=== PATIENT | male | born 1960 | race Caucasian/White ===

== ENCOUNTER 2018-08-10 11:35 | Emergency (ER) | payer BC ==
[2018-08-10] MEDS ORDERED: Sodium Chloride 0.9% 1,000 ML IV ONE (12:06)
--- NOTE | 2018-08-10 12:11 | EDM.PDOC ---
ED HPI GENERAL MEDICAL PROBLEM - General Chief Complaint: Respiratory Problem Stated Complaint: RESPIRATORY ISSUES/ABD PAIN Time Seen by Provider: 08/10/18 11:58 - History of Present Illness INITIAL COMMENTS - FREE TEXT/NARRATIVE: This is a 57-year-old male accompanied by his , who presented to the emergency department for an evaluation of persistent cough and congestion for last 2 weeks and left lower quadrant abdominal pain for last few days. He stated that he has been placed on doxycycline and Z-Leonardo for cough and congestion which he stated that he finished a course of antibiotics, despite using medication his symptoms remains the same. He stated that he has been having left lower quadrant pain for last few days which is associated with nausea but denies any episode of vomiting. He further stated that he has a history of diverticulitis and currently rated his discomfort level about 8 on a scale of 0-10. Pain described as cramping type sensation which has no radiation. He denies any constipation, diarrhea, bloody stool, fever, chest pain , neck pain, headache, chills, night sweats, weight loss. He denies any medication use to alleviate pain prior to arrival today. He denies any recent traveling or known sick contacts. Denies any other concern at this time. Left Lower Abdomen Pain Score (Numeric/FACES): 8 - Related Data Allergies Allergy/AdvReac Type Severity Reaction Status Date / Time No Known Allergies Allergy Verified 08/10/18 11:50 Home Meds: Home Meds Albuterol [Ventolin HFA] 2 puff INH Q6HR PRN #1 inhaler 08/10/18 [Rx] Cyclobenzaprine [Flexeril] 10 mg PO ASDIRECTED PRN 08/10/18 [History] Lisinopril 10 mg PO DAILY 08/10/18 [History] Morphine Sulfate [Morphabond ER] 15 mg PO ASDIRECTED PRN 08/10/18 [History] atorvaSTATin [Lipitor] 40 mg PO DAILY 08/10/18 [History] oxyCODONE 10 mg PO ASDIRECTED PRN 08/10/18 [History] Past Medical History Cardiovascular History: Reports: High Cholesterol, Hypertension Gastrointestinal History: Reports: Diverticulosis - Past Surgical History GI Surgical History: Reports: Colonoscopy Social & Family History - Tobacco Use Smoking Status *Q: Current Every Day Smoker Years of Tobacco use: 25 Packs/Tins Daily: 1 - Caffeine Use Caffeine Use: Reports: None - Recreational Drug Use Recreational Drug Use: No ED ROS GENERAL - Review of Systems Review Of Systems: ROS reveals no pertinent complaints other than HPI. ED EXAM, GENERAL - Physical Exam Exam: See Below Exam Limited By: No Limitations General Appearance: Alert, WD/WN, No Apparent Distress Ears: Normal External Exam, Normal Canal, Hearing Grossly Normal, Normal TMs Ear Exam: Bilateral Ear: Auricle Normal, Canal Normal, TM normal Nose: Normal Inspection, Normal Mucosa, No Blood, Clear Rhinorrhea Throat/Mouth: Normal Inspection, Normal Lips, Normal Teeth, Normal Gums, Normal Oropharynx, Normal Voice, No Airway Compromise Head: Atraumatic, Normocephalic Neck: Normal Inspection, Supple, Non-Tender, Full Range of Motion Respiratory/Chest: No Respiratory Distress, No Accessory Muscle Use, Chest Non- Tender, Rhonchi Cardiovascular: Normal Peripheral Pulses, Regular Rate, Rhythm, No Edema, No Murmur GI/Abdominal: Normal Bowel Sounds, Soft, No Organomegaly, No Distention, No Abnormal Bruit, No Mass, Other (Mild tenderness to palpation at left lower quadrant.) Back Exam: Normal Inspection, Full Range of Motion, NT Extremities: Normal Inspection, Normal Range of Motion, Non-Tender, Normal Capillary Refill, No Pedal Edema Neurological: Alert, Oriented Psychiatric: Normal Affect, Normal Mood Skin Exam: Warm, Dry, Intact, Normal Color, No Rash Course - Vital Signs Last Recorded V/S: Last Vital Signs Temp 36.9 C 08/10/18 11:46 Pulse 73 08/10/18 11:46 Resp 13 08/10/18 11:46 BP 137/82 08/10/18 11:46 Pulse Ox 98 08/10/18 11:46 - Orders/Labs/Meds Orders: Active Orders 24 hr Category Date Time Status Chest 2V [CR] Stat Exams 08/10/18 12:06 Taken Labs: Laboratory Tests 08/10/18 08/10/18 08/10/18 Range/Units 12:35 12:35 12:35 WBC 8.45 (4.23-9.07) K/mm3 RBC 4.99 (4.63-6.08) M/mm3 Hgb 14.9 (13.7-17.5) gm/L Hct 44.2 (40.1-51.0) % MCV 88.6 (79.0-92.2) fl MCH 29.9 (25.7-32.2) pg MCHC 33.7 (32.2-35.5) g/dl RDW Std Deviation 50.0 H (35.1-43.9) fL Plt Count 263 (163-337) K/mm3 MPV 9.7 (9.4-12.3) fl Neut % (Auto) 49.2 (34.0-67.9) % Lymph % (Auto) 35.0 (21.8-53.1) % Glynn % (Auto) 9.7 (5.3-12.2) % Eos % (Auto) 5.4 (0.8-7.0) Baso % (Auto) 0.6 (0.1-1.2) % Neut # (Auto) 4.15 (1.78-5.38) K/mm3 Lymph # (Auto) 2.96 (1.32-3.57) K/mm3 Glynn # (Auto) 0.82 (0.30-0.82) K/mm3 Eos # (Auto) 0.46 (0.04-0.54) K/mm3 Baso # (Auto) 0.05 (0.01-0.08) K/mm3 Sodium 136 (136-145) mEq/L Potassium 3.5 (3.5-5.1) mEq/L Chloride 103 (98-107) mEq/L Carbon Dioxide 24 (21-32) mEq/L Anion Gap 12.5 (5-15) BUN 6 L (7-18) mg/dL Creatinine 1.1 (0.7-1.3) mg/dL Est Cr Clr Drug Dosing 68.47 mL/min Estimated GFR (MDRD) > 60 (>60) mL/min BUN/Creatinine Ratio 5.5 L (14-18) Glucose 94 (74-106) mg/dL Calcium 8.5 (8.5-10.1) mg/dL Total Bilirubin 0.3 (0.2-1.0) mg/dL AST 14 L (15-37) U/L ALT 24 (16-63) U/L Alkaline Phosphatase 97 (46-116) U/L NT-Pro-B Natriuret Pep 25 (0-125) pg/mL Total Protein 6.8 (6.4-8.2) g/dl Albumin 3.3 L (3.4-5.0) g/dl Globulin 3.5 gm/dL Albumin/Globulin Ratio 0.9 L (1-2) Lipase 148 (73-393) U/L Meds: Medications Discontinued Medications Generic Name Dose Route Start Last Admin Trade Name Freq PRN Reason Stop Dose Admin Sodium Chloride 1,000 mls @ 999 mls/hr 08/10/18 12:06 08/10/18 12:35 Normal Saline IV 08/10/18 13:06 999 mls/hr ONETIME ONE Administration - Re-Assessments/Exams Free Text/Narrative Re-Assessment/Exam: 08/10/18 13:00 patient reevaluated at bedside. Patient appears to be in no acute cardiopulmonary distress. Lung sounds clear to auscultation bilaterally. Explained the results of CT scan and x-ray which showed no acute pathology. At this time patient is ready for discharge. Departure - Departure Time of Disposition: 13:18 Disposition: Home, Self-Care 01 Condition: Good Clinical Impression: Bronchitis - Discharge Information Prescriptions: Albuterol [Ventolin HFA] 2 puff INH Q6HR PRN #1 inhaler PRN Reason: Wheezing Instructions: Shortness of Breath, Adult, [id number] Referrals: Gris Merza NP [Primary Care Provider] - 3 Days (Please call your primary care provider for reevaluation for today emergency visit) Forms: ED Department Discharge Additional Instructions: Patient has been advised to drink plenty of fluids to keep hydrated. Also advised to take Tylenol 1000 mg were ibuprofen 600 mg by mouth 3-4 times a day as needed for fever and pain control. Highly advised to seek immediate medical attention if he develops any chest pain, shortness of breath, headache, visual changes, or fever greater than 100.4F - My Orders Last 24 Hours: My Active Orders 08/10/18 12:06 Chest 2V [CR] Stat - Assessment/Plan Last 24 Hours: My Active Orders 08/10/18 12:06 Chest 2V [CR] Stat
--- NOTE | 2018-08-10 12:52 | CT ---
CT abdomen and pelvis Technique: Multiple axial sections were obtained from above the dome of the diaphragm inferiorly through the pubic symphysis. Intravenous and oral contrast was not utilized. Lack of contrast limits details of the exam. Findings: Nonobstructing calculus is seen within the mid to upper left kidney measuring 5.5 mm. No other abnormal calcifications are seen within the kidneys. No hydronephrosis is seen. No ureteral dilatation or ureteral stone is seen. Visualized lung bases show nothing acute. Liver shows no focal parenchymal abnormality. Spleen shows no discrete abnormality. Adrenal glands show no nodule. Gallbladder contains no calcified gallstones. Pancreas is within normal limits. Aorta shows no aneurysmal dilatation with mild atherosclerotic calcification. Mild areas of ectasia are seen. Maximum AP dimension of the aorta is 2.1 cm. No retroperitoneal adenopathy is seen. No mesenteric abnormalities are seen. Appendix is seen and is normal in size. No pelvic mass or adenopathy is seen. No free fluid or inflammatory change is seen. Previous surgery is noted at L4-L5. Slight degenerative change is noted within the spine. Impression: 1. Nonobstructing stone within the left kidney. 2. Other incidental findings. 3. Nothing acute is definitely appreciated on noncontrast CT study of the abdomen or pelvis. Diagnostic code #2
--- NOTE | 2018-08-12 09:34 | CR ---
Chest: Two views of the chest were obtained. Comparison: No prior chest x-ray. Heart size and mediastinum are normal. Lungs are clear. Prior cervical spine surgery is noted. Impression: 1. Nothing acute is seen on two-view chest x-ray. Diagnostic code #2
== END 2018-08-10 13:35 | disposition home or self-care (01) ==
LOC: JD.ED 11:35
DX: J40 Bronchitis, not specified as acute or chronic (principal); R10.32 Left lower quadrant pain; I10 Essential (primary) hypertension; F17.210 Nicotine dependence, cigarettes, uncomplicated
CPT/HCPCS: 36415; 71046; 74176; 80053; 83690; 83880; 85025; 96360; 99285; J7040; 99283

== ENCOUNTER 2020-01-16 23:33 | Emergency (ER) | payer BC, MEDICAID ==
[2020-01-17] MEDS ORDERED: Ibuprofen 600 MG Tab PO ONE (03:21)
[2020-01-17] MEDS ORDERED: Orphenadrine 100 MG Tab.ER PO STA (03:21)
--- NOTE | 2020-01-17 03:26 | EDM.PDOC ---
ED HPI GENERAL MEDICAL PROBLEM - General Chief Complaint: Back Pain or Injury Stated Complaint: [facility] Time Seen by Provider: 01/17/20 03:02 Source of Information: Reports: Patient History Limitations: Reports: No Limitations - History of Present Illness INITIAL COMMENTS - FREE TEXT/NARRATIVE: Mr. Rosario is a very pleasant 59-year-old man with a past medical history significant for chronic neck and lower back pain, status post 2 ACDFs and 4 lumbar surgeries, who states that he and his started hiking in [facility] at 15:00 yesterday, 01/16/2020. He was not wearing a backpack, but he states that by 20:30, his lower right back was in pain. The pain radiated to the left side, then down his posterior left thigh to the knee. No tingling, numbness, or weakness, only pain. No bowel or bladder incontinence. He did not feel that he could make it back out of the park, therefore his called 911, and the patient was airlifted by helicopter here. He was given IV fentanyl en route. The patient states that while he has chronic lower back pain, his pain is usually on the left side. He has experienced similar left lower back and left posterior thigh pain in the past, numerous times, but he states that he has not previously had lower right back pain. The patient states that he recently had the flu, although he acknowledges that he was not actually tested for influenza. He was treated with cough syrup and an antibiotic. Otherwise, the patient denies recent fever, chills, cough, dyspnea, chest pain, palpitations, nausea, vomiting, constipation, diarrhea, abdominal pain, urinary symptoms, recent weight gain or weight loss, recent bloody bowel movements or black bowel movements, recent joint aches, headaches, or rashes. Here in the ED, the patient is found to be hemodynamically stable, afebrile, saturating 93% on room air. The patient's PCP is Gris Meraz NP. He did not receive an influenza vaccine this season, and declined an offer to receive one here today. Lower Back Pain Score (Numeric/FACES): 6 - Related Data Allergies Allergy/AdvReac Type Severity Reaction Status Date / Time No Known Allergies Allergy Verified 10/20/18 17:49 Home Meds: Home Meds Cyclobenzaprine [Flexeril] 10 mg PO ASDIRECTED PRN 08/10/18 [History] Lisinopril 10 mg PO DAILY 08/10/18 [History] atorvaSTATin [Lipitor] 40 mg PO DAILY 08/10/18 [History] oxyCODONE 10 mg PO DAILY PRN 08/10/18 [History] Sertraline [Zoloft] 100 mg PO DAILY 09/26/18 [History] Orphenadrine [Norflex] 1 tab PO Q12H PRN #14 tab.er 01/17/20 [Rx] Past Medical History Cardiovascular History: Reports: High Cholesterol, Hypertension Gastrointestinal History: Reports: Colon Polyp, Diverticulosis, Hemorrhoids Genitourinary History: Reports: Renal Calculus Psychiatric History: Reports: Anxiety, Depression - Past Surgical History GI Surgical History: Reports: Colonoscopy (x 3). Denies: EGD Neurological Surgical History: Reports: C-Spine (ACDF x 2), Lumbar Spine ( micriodiscectomy, L4-L5 fusion, reversal of fusion, repeat L4-L5 fusion) Musculoskeletal Surgical History: Reports: Nerve Relocation (left ulnar n. x 2) , Shoulder Surgery (left, arthroscopic) Social & Family History - Tobacco Use Smoking Status *Q: Current Every Day Smoker Years of Tobacco use: 39 Packs/Tins Daily: 1 Packs/Tins Daily Comment: Down from 2 ppd - Caffeine Use Caffeine Use: Reports: Soda - Alcohol Use Alcohol Use History: Yes Alcohol Use Frequency: Rarely - Recreational Drug Use Recreational Drug Use: No - Living Situation & Occupation Living situation: Reports: , with Spouse Occupation: Employed ([employer]s [employer]) ED ROS GENERAL - Review of Systems Review Of Systems: Comprehensive ROS is negative, except as noted in HPI. Musculoskeletal: Reports: Neck Pain (chronic), Back Pain (chronic) ED EXAM,LOWER BACK PAIN/INJURY - Physical Exam Exam: See Below Exam Limited By: No Limitations General Appearance: Alert, WD/WN, No Apparent Distress (moves easily, with no apparent discomfort), Other (Face appears sunburned) Eye Exam: Bilateral Eye: EOMI, Normal Inspection Ears: Normal External Exam, Hearing Grossly Normal Nose: Normal Inspection Throat/Mouth: Normal Inspection, Normal Lips, Normal Voice, No Airway Compromise Head: Atraumatic, Normocephalic Neck: Normal Inspection, Full Range of Motion Respiratory/Chest: No Respiratory Distress, Lungs Clear, Normal Breath Sounds, No Accessory Muscle Use Cardiovascular: Normal Peripheral Pulses, Regular Rate, Rhythm, No Edema, No Gallop, No JVD, No Murmur, No Rub GI/Abdominal: Normal Bowel Sounds, Soft, No Organomegaly, No Distention, No Abnormal Bruit, No Mass, Tender (left side only - the patient states that it is chronic, and that the cause is not known) (Male) Exam: Deferred Rectal (Males) Exam: Deferred Back Exam: Other (There is a well-healed vertical surgical scar over the lower lumbar spinous processes. The patient reports tenderness to palpation of both the lower right and lower left paraspinous muscles - he jumps when palpated. Right leg raise to 45 degrees induces lower back pain without radicular symptoms , bilaterally. No change with dorsiflexion of the foot. The patient is able to flex his spine to 90 degrees, and extend his spine to 30 degrees. He is able to tilt his spine to 30 degrees bilaterally. He is able to twist his spine to 45 degrees bilaterally. Unilateral knee bend is normal bilaterally.) Extremities: Normal Inspection, Normal Range of Motion, No Pedal Edema, Normal Capillary Refill Neurological: Alert, Normal Dorsiflexion, Normal Plantar Flexion, Normal Gait ( in exam room), No Motor/Sensory Deficits, Oriented x 3 Psychiatric: Normal Affect Skin Exam: Warm, Dry, Intact, Normal Color, No Rash Course - Vital Signs Last Recorded V/S: Last Vital Signs Temp 37.4 C 01/16/20 23:45 Pulse 64 01/16/20 23:45 Resp 20 01/16/20 23:45 BP 120/71 01/16/20 23:45 Pulse Ox 93 L 01/16/20 23:45 - Re-Assessments/Exams Free Text/Narrative Re-Assessment/Exam: 01/17/20 03:21 The patient's history and physical examination are consistent with lower back muscle spasm, not a new herniated intervertebral disc. I will therefore treat him with Norflex and ibuprofen. I will submit a prescription for Norflex, and he can take [id number] ibuprofen. I will discharge him home. Departure - Departure Time of Disposition: 03:22 Disposition: Home, Self-Care 01 Condition: Good Clinical Impression: Spasm of muscle of lower back - Discharge Information *PRESCRIPTION DRUG MONITORING PROGRAM REVIEWED*: Not Applicable *COPY OF PRESCRIPTION DRUG MONITORING REPORT IN PATIENT NICOLÁS: Not Applicable Referrals: Gris Meraz NP [Primary Care Provider] - Additional Instructions: You were seen in the emergency room for low back pain that developed while hiking. Based on your history and physical examination, your low back pain is due to a muscle spasm, not a new herniated intervertebral disc. You have been started on the muscle relaxant Norflex, and a prescription for Norflex has been sent to the [facility] located just south and across the [address] from [facility]. Take 1 tablet of Norflex every 12 hours, starting this evening, 01/17/2020, as prescribed. It is important that if you take Norflex, that you NOT also take previously prescribed Flexeril. In addition to Norflex, you have been started on ibuprofen. Ibuprofen is available [id number]. Take 3 tablets (600 mg) every 8 hours, with food, as needed for discomfort. Follow-up with your PCP, Gris Meraz NP, as needed. If any other problems, please do not hesitate to return to the ER. Sepsis Event Note - Evaluation Sepsis Screening Result: No Definite Risk - Focused Exam Vital Signs: Vital Signs Temp Pulse Resp BP Pulse Ox 01/16/20 23:45 37.4 C 64 20 120/71 93 L Date Exam was Performed: 01/17/20 Time Exam was Performed: 03:21
== END 2020-01-17 04:31 | disposition home or self-care (01) ==
LOC: SUPCPDRO 23:33 → JD.ED 23:33
DX: M62.830 Muscle spasm of back (principal); E78.00 Pure hypercholesterolemia, unspecified; I10 Essential (primary) hypertension; F41.9 Anxiety disorder, unspecified; F32.9 Major depressive disorder, single episode, unspecified; F17.210 Nicotine dependence, cigarettes, uncomplicated; Z79.899 Other long term (current) drug therapy
CPT/HCPCS: 99284; A9270

== ENCOUNTER 2020-06-02 21:15 | Emergency (ER) | payer MEDICAID ==
[2020-06-02] MEDS ORDERED: Aspirin 81 MG Tab.Chew PO ONE (22:09)
[2020-06-02] MEDS ORDERED: Lactated Ringers 250 ML IV ONE (22:09)
[2020-06-02] MEDS ORDERED: Nitroglycerin 0.4 MG Tab.SL SL ONE (22:11)
--- NOTE | 2020-06-02 22:12 | EDM.PDOC ---
ED HPI GENERAL MEDICAL PROBLEM - General Chief Complaint: Chest Pain Stated Complaint: CHEST PAIN Time Seen by Provider: 06/02/20 22:00 - History of Present Illness INITIAL COMMENTS - FREE TEXT/NARRATIVE: 59-year-old male presents the emergency room with chest pain. This chest pain is more right-sided and substernal radiates into his jaw. He does not have any shoulder or arm involvement. This pain started several hours ago. The patient has had problems with chest pain in the past his last stress test was roughly 6 years ago. It was nondiagnostic. The patient does smoke. He is treated for hypertension and hyperlipidemia but he has a negative family history for coronary artery disease. It is fairly active any goes out walking or hiking on a daily basis and this does not seem to bring on any chest pain chest pressure breathing difficulties or shortness of breath. Mid-Sternal Chest Pain Score (Numeric/FACES): 5 - Related Data Allergies Allergy/AdvReac Type Severity Reaction Status Date / Time No Known Allergies Allergy Verified 06/02/20 21:41 Home Meds: Home Meds Lisinopril 10 mg PO DAILY 08/10/18 [History] atorvaSTATin [Lipitor] 40 mg PO DAILY 08/10/18 [History] Sertraline [Zoloft] 100 mg PO DAILY 09/26/18 [History] Past Medical History Cardiovascular History: Reports: High Cholesterol, Hypertension Gastrointestinal History: Reports: Colon Polyp, Diverticulosis, Hemorrhoids Genitourinary History: Reports: Renal Calculus Musculoskeletal History: Reports: Back Pain, Chronic, Neck Pain, Chronic Psychiatric History: Reports: Anxiety, Depression - Past Surgical History GI Surgical History: Reports: Colonoscopy Neurological Surgical History: Reports: C-Spine, Lumbar Spine Musculoskeletal Surgical History: Reports: Nerve Relocation, Shoulder Surgery Social & Family History - Tobacco Use Smoking Status *Q: Current Every Day Smoker Years of Tobacco use: 30 Packs/Tins Daily: 1 - Caffeine Use Caffeine Use: Reports: Coffee - Recreational Drug Use Recreational Drug Use: No - Living Situation & Occupation Living situation: Reports: , with Spouse Occupation: Employed ([employer]s [employer]) ED ROS GENERAL - Review of Systems Review Of Systems: See Below Constitutional: Reports: No Symptoms HEENT: Reports: No Symptoms Respiratory: Reports: No Symptoms Cardiovascular: Reports: Chest Pain. Denies: Dyspnea on Exertion, Edema, Palpitations Endocrine: Reports: No Symptoms GI/Abdominal: Reports: No Symptoms : Reports: No Symptoms Musculoskeletal: Reports: No Symptoms Skin: Reports: No Symptoms Neurological: Reports: No Symptoms ED EXAM, GENERAL - Physical Exam Exam: See Below Exam Limited By: No Limitations General Appearance: Alert, No Apparent Distress, Other (He rates his pain at a 4 out of 10 at worst it was about an 8) Head: Atraumatic, Normocephalic Neck: Normal Inspection, Supple, Non-Tender, Full Range of Motion Respiratory/Chest: No Respiratory Distress, Lungs Clear, Normal Breath Sounds Cardiovascular: Regular Rate, Rhythm, No Edema, No Murmur GI/Abdominal: Normal Bowel Sounds, Soft, Non-Tender Back Exam: Normal Inspection. No: CVA Tenderness (L), CVA Tenderness (R) Extremities: Normal Inspection, No Pedal Edema Neurological: Alert, Oriented, Normal Cognition Psychiatric: Normal Affect, Normal Mood EKG INTERPRETATION EKG Date: 06/02/20 Rhythm: NSR [place]: LAD-Left [place] Deviation P-Wave: Present QRS: Normal ST-T: Other (Inverted T waves in aVF as well as lead III no significant ST-T wave changes) QT: Normal Comparison: NA - No Prior EKG EKG Interpretation Comments: Borderline EKG Course - Vital Signs Last Recorded V/S: Last Vital Signs Temp 36.3 C 06/02/20 21:38 Pulse 67 06/02/20 23:53 Resp 16 06/02/20 23:53 BP 101/59 L 06/02/20 23:53 Pulse Ox 96 06/02/20 23:53 - Orders/Labs/Meds Orders: Active Orders 24 hr Category Date Time Status EKG 12 Lead [EKG Documentation Completion] [RC] STAT Care 06/02/20 21:42 Active Chest 1V Frontal [CR] Stat Exams 06/02/20 21:45 Taken Lactated Ringers [Ringers, Lactated] 1,000 ml Med 06/02/20 22:15 Active IV ASDIRECTED Medication Orders Lactated Ringer's (Ringers, Lactated) 1,000 mls @ 50 mls/hr IV ASDIRECTED REBECCA Last Admin: 06/02/20 22:25 Dose: 50 mls/hr Documented by: PARISH Labs: Laboratory Tests 07/26/20 07/26/20 07/26/20 Range/Units 22:00 22:00 22:00 WBC 14.62 H (4.23-9.07) K/mm3 RBC 4.97 (4.63-6.08) M/mm3 Hgb 15.2 (13.7-17.5) gm/dl Hct 44.8 (40.1-51.0) % MCV 90.1 D (79.0-92.2) fl MCH 30.6 (25.7-32.2) pg MCHC 33.9 (32.2-35.5) g/dl RDW Std Deviation 47.2 H (35.1-43.9) fL Plt Count 262 (163-337) K/mm3 MPV 9.6 (9.4-12.3) fl Neutrophils % (Manual) 66 H (40-60) % Band Neutrophils % 6 (0-10) % Lymphocytes % (Manual) 20 (20-40) % Atypical Lymphs % 0 % Monocytes % (Manual) 5 (2-10) % Eosinophils % (Manual) 3 (0.8-7.0) % Basophils % (Manual) 0 L (0.2-1.2) Platelet Estimate Adequate Plt Morphology Comment Normal RBC Morph Comment Normal PT 10.4 (9.7-12.0) SECONDS INR 0.95 APTT 28 (22-31) SECONDS D-Dimer, Quantitative (0.19-0.50) mg/L Sodium 139 (136-145) mEq/L Potassium 3.9 (3.5-5.1) mEq/L Chloride 104 (98-107) mEq/L Carbon Dioxide 28 (21-32) mEq/L Anion Gap 10.9 (5-15) BUN 10 (7-18) mg/dL Creatinine 1.2 (0.7-1.3) mg/dL Est Cr Clr Drug Dosing 61.29 mL/min Estimated GFR (MDRD) > 60 (>60) mL/min BUN/Creatinine Ratio 8.3 L (14-18) Glucose 98 (74-106) mg/dL Calcium 8.7 (8.5-10.1) mg/dL Total Bilirubin 0.3 (0.2-1.0) mg/dL AST 13 L (15-37) U/L ALT 21 (16-63) U/L Alkaline Phosphatase 94 (46-116) U/L Troponin I < 0.017 (0.00-0.056) ng/mL Total Protein 7.1 (6.4-8.2) g/dl Albumin 3.3 L (3.4-5.0) g/dl Globulin 3.8 gm/dL Albumin/Globulin Ratio 0.9 L (1-2) 06/02/20 06/02/20 Range/Units 22:00 23:55 WBC (4.23-9.07) K/mm3 RBC (4.63-6.08) M/mm3 Hgb (13.7-17.5) gm/dl Hct (40.1-51.0) % MCV (79.0-92.2) fl MCH (25.7-32.2) pg MCHC (32.2-35.5) g/dl RDW Std Deviation (35.1-43.9) fL Plt Count (163-337) K/mm3 MPV (9.4-12.3) fl Neutrophils % (Manual) (40-60) % Band Neutrophils % (0-10) % Lymphocytes % (Manual) (20-40) % Atypical Lymphs % % Monocytes % (Manual) (2-10) % Eosinophils % (Manual) (0.8-7.0) % Basophils % (Manual) (0.2-1.2) Platelet Estimate Plt Morphology Comment RBC Morph Comment PT (9.7-12.0) SECONDS INR APTT (22-31) SECONDS D-Dimer, Quantitative 0.23 (0.19-0.50) mg/L Sodium (136-145) mEq/L Potassium (3.5-5.1) mEq/L Chloride (98-107) mEq/L Carbon Dioxide (21-32) mEq/L Anion Gap (5-15) BUN (7-18) mg/dL Creatinine (0.7-1.3) mg/dL Est Cr Clr Drug Dosing mL/min Estimated GFR (MDRD) (>60) mL/min BUN/Creatinine Ratio (14-18) Glucose (74-106) mg/dL Calcium (8.5-10.1) mg/dL Total Bilirubin (0.2-1.0) mg/dL AST (15-37) U/L ALT (16-63) U/L Alkaline Phosphatase (46-116) U/L Troponin I < 0.017 (0.00-0.056) ng/mL Total Protein (6.4-8.2) g/dl Albumin (3.4-5.0) g/dl Globulin gm/dL Albumin/Globulin Ratio (1-2) Meds: Medications Generic Name Dose Route Start Last Admin Trade Name Freq PRN Reason Stop Dose Admin Lactated Ringer's 1,000 mls @ 50 mls/hr 06/02/20 22:15 06/02/20 22:25 Ringers, Lactated IV 50 mls/hr ASDIRECTED REBECCA Administration Discontinued Medications Generic Name Dose Route Start Last Admin Trade Name Freq PRN Reason Stop Dose Admin Aspirin 324 mg 06/02/20 22:09 06/02/20 22:19 Aspirin PO 06/02/20 22:10 324 mg ONETIME ONE Administration Lactated Ringer's 250 mls @ 999 mls/hr 06/02/20 22:09 06/02/20 22:19 Ringers, Lactated IV 06/02/20 22:24 999 mls/hr .BOLUS ONE Administration Nitroglycerin 0.4 mg 06/02/20 22:11 06/02/20 22:22 Nitrostat SL 06/02/20 22:12 0.4 mg ONETIME ONE Administration - Re-Assessments/Exams Free Text/Narrative Re-Assessment/Exam: 06/03/20 01:21 EKG was nondiagnostic he has inverted T waves in aVF no significant ST-T wave changes. Chest x-ray with was nondiagnostic no acute cardiopulmonary changes laboratory evaluation is unrevealing and initial troponin is negative secondary troponin is negative. I did use the heart score with this gentleman and he has a heart score of 3 one point for moderately suspicious history a second point for his age and one point for 1 or 2 risk factors. His troponins were negative the patient did not demonstrate any significant ST depression or any nonspecific repolarization abnormalities. I did discuss the results of the heart score with the patient and he understands that there is no 100% assurance. And with a heart score of 3 or less he still has a 1.7% chance of a major acute coronary event in the next 6 weeks. The patient would like to be discharged home I have recommended he discuss further evaluation with his regular provider such as a stress test. Of also recommended he continue his current medications including his statin medication and add a baby aspirin 81 mg enteric-coated daily. Of also encouraged him to quit smoking. Departure - Departure Time of Disposition: 01:24 Disposition: Home, Self-Care 01 Clinical Impression: Chest pain Referrals: Gris Meraz NP [Primary Care Provider] - Forms: ED Department Discharge Additional Instructions: Return to the emergency room with any questions problems or worsening symptoms. Quit smoking! Start a baby aspirin 81 mg enteric-coated 1 daily. Follow-up with your healthcare provider this next week and discuss if you should have further heart testing done. Sepsis Event Note (ED) - Evaluation Sepsis Screening Result: No Definite Risk - Focused Exam Vital Signs: Vital Signs Temp Pulse Resp BP BP Pulse Ox 06/02/20 23:53 67 16 101/59 L 96 06/02/20 23:47 61 21 H 99/70 93 L 06/02/20 22:22 110/66 06/02/20 21:38 36.3 C 62 16 102/66 93 L - My Orders Last 24 Hours: My Active Orders 06/02/20 21:42 EKG 12 Lead [EKG Documentation Completion] [RC] STAT 06/02/20 21:45 Chest 1V Frontal [CR] Stat 06/02/20 22:15 Lactated Ringers [Ringers, Lactated] 1,000 ml IV ASDIRECTED - Assessment/Plan Last 24 Hours: My Active Orders 06/02/20 21:42 EKG 12 Lead [EKG Documentation Completion] [RC] STAT 06/02/20 21:45 Chest 1V Frontal [CR] Stat 06/02/20 22:15 Lactated Ringers [Ringers, Lactated] 1,000 ml IV ASDIRECTED
[2020-06-02] MEDS ORDERED: Lactated Ringers 1,000 ML IV SCH (22:15)
--- NOTE | 2020-06-03 11:19 | CR ---
Chest: Portable view of the chest was obtained. Comparison: Prior chest x-ray of 08/10/18. Heart size and mediastinum are within normal limits. Lungs show no acute parenchymal change. Bony structures are grossly intact. Prior cervical spine surgery is noted. Impression: 1. Nothing acute is appreciated on portable chest x-ray. Diagnostic code #2 This report was dictated in MDT
== END 2020-06-03 01:44 | disposition home or self-care (01) ==
LOC: JD.ED 21:15
DX: R07.2 Precordial pain (principal); I10 Essential (primary) hypertension; E78.00 Pure hypercholesterolemia, unspecified; F41.9 Anxiety disorder, unspecified; F32.9 Major depressive disorder, single episode, unspecified; F17.210 Nicotine dependence, cigarettes, uncomplicated; Z79.899 Other long term (current) drug therapy
CPT/HCPCS: 36415; 71045; 80053; 84484; 85007; 85027; 85379; 85610; 85730; 93005; 99285; A9270; J7120; 93010; 99284

== ENCOUNTER 2021-12-26 19:38 | Observation (INO) | payer MEDICAID ==
[2021-12-26] MEDS ORDERED: Sodium Chloride 0.9% 10 ML Syringe FLUSH PRN (20:27)
[2021-12-26] MEDS ORDERED: Ondansetron 4 MG/2 ML SDV IVPUSH ONE ×2 (20:27→20:35)
[2021-12-26] MEDS ORDERED: Sodium Chloride 0.9% 1,000 ML IV SCH (20:30)
[2021-12-26] MEDS ORDERED: Iopamidol 612 MG/ML 100 ML Bottle IVPUSH ONE (20:35)
[2021-12-26] MEDS ORDERED: Sodium Chloride 0.9% 10 ML SDV FLUSH ONE (20:35)
[2021-12-26] MEDS ORDERED: HYDROmorphone 1 MG/ML Syringe IVPUSH ONE (20:35)
[2021-12-26] MEDS ORDERED: HYDROmorphone 0.5 MG/0.5 ML Syringe IVPUSH ONE (21:51)
[2021-12-26 22:08] LABS: HEMOGLOBIN A1C 5.7 %
[2021-12-26 22:33] LABS: CORONAVIRUS COVID-19 NAA NEGATIVE (NEGATIVE)
[2021-12-26] MEDS: Sodium Chloride 0.9% 1,000 ML IV SCH (23:45)
[2021-12-26] MEDS ORDERED: Ondansetron 4 MG/2 ML SDV IVPUSH PRN (23:50)
[2021-12-27] MEDS: HYDROmorphone 1 MG/ML Syringe IVPUSH PRN ×5 (00:22→15:22)
[2021-12-27] MEDS: Sodium Chloride 0.9% 1,000 ML IV SCH (09:31)
== END 2021-12-27 15:35 | disposition home or self-care (01) ==
LOC: JD.ED 19:38 → JD.MS 22:41
PROVIDERS: ADMIT Family Medicine; ATTEND Family Medicine
DX: K85.90 Acute pancreatitis without necrosis or infection, unspecified (principal); K57.90 Diverticulosis of intestine, part unspecified, without perforation or abscess without bleeding; I10 Essential (primary) hypertension; E78.5 Hyperlipidemia, unspecified; F32.A Depression, unspecified; Z79.899 Other long term (current) drug therapy; E78.00 Pure hypercholesterolemia, unspecified; F41.9 Anxiety disorder, unspecified; F17.210 Nicotine dependence, cigarettes, uncomplicated; Z98.890 Other specified postprocedural states; Z20.822 Contact with and (suspected) exposure to COVID-19
CPT/HCPCS: 0240U; 36415; 74177; 80053; 80307; 81001; 82977; 83036; 83690; 83735; 84478; 85025; 86140; 96374; 96375; 96376; 99285; G0378; J1170; J2405; J7030; Q9967

== ENCOUNTER 2022-01-14 16:03 | Emergency (ER) | payer MEDICAID ==
[2022-01-14] MEDS ORDERED: HYDROmorphone 1 MG/ML Syringe IVPUSH ONE ×2 (16:35→18:38)
[2022-01-14] MEDS ORDERED: Metoclopramide 10 MG/2 ML SDV IVPUSH ONE (16:36)
[2022-01-14] MEDS ORDERED: Dextrose 5%-0.9% NaCl 1,000 ML IV SCH (16:45)
[2022-01-14] MEDS ORDERED: methylPREDNISolone Sodium Succinate 125 MG/2 ML SDV IVPUSH ONE (18:37)
[2022-01-14] MEDS ORDERED: Ketorolac 30 MG/ML SDV IVPUSH SCH (18:45)
== END 2022-01-14 19:31 | disposition home or self-care (01) ==
LOC: JD.ED 16:03
DX: R07.89 Other chest pain (principal); U09.9 Post COVID-19 condition, unspecified; R10.9 Unspecified abdominal pain; R41.840 Attention and concentration deficit; E78.00 Pure hypercholesterolemia, unspecified; I10 Essential (primary) hypertension; Z72.0 Tobacco use
CPT/HCPCS: 36415; 71045; 80053; 80307; 83690; 83735; 83880; 84484; 85025; 86140; 93005; 96374; 96375; 96376; 99285; J1170; J1885; J2765; J2930; J7042; 93010

== ENCOUNTER 2022-03-02 13:27 | Emergency (ER) | payer MEDICAID ==
[2022-03-02] MEDS ORDERED: Morphine 2 MG/ML SYRINGE IVPUSH ONE (14:15)
[2022-03-02] MEDS ORDERED: Aspirin 81 MG Tab.Chew PO ONE (14:15)
[2022-03-02] MEDS ORDERED: Morphine 4 MG/ML Syringe IVPUSH ONE (16:10)
[2022-03-02] MEDS ORDERED: Heparin Sodium 5,000 Units/ML Vial IVPUSH ONE (16:32)
[2022-03-02] MEDS ORDERED: Nitroglycerin/D5W 25 MG/250 ML BOTTLE IV SCH (16:45)
[2022-03-02] MEDS ORDERED: Heparin Sodium/D5W 25,000 UNITS/500 ML BAG IV SCH (16:45)
== END 2022-03-02 17:45 ==
LOC: JD.ED 13:27
DX: I20.0 Unstable angina (principal); I10 Essential (primary) hypertension; F17.210 Nicotine dependence, cigarettes, uncomplicated; Z86.16 Personal history of COVID-19; Z20.822 Contact with and (suspected) exposure to COVID-19
CPT/HCPCS: 36415; 71045; 80053; 83735; 83880; 84484; 85025; 85379; 85610; 87635; 93005; 96365; 96368; 96375; 99285; A9270; J1644; J2270; J3490; 93010; U0002

== ENCOUNTER 2022-03-05 14:14 | Emergency (ER) | payer MEDICAID ==
[2022-03-05] MEDS ORDERED: Sodium Chloride 0.9% 10 ML Syringe FLUSH PRN (14:22)
[2022-03-05] MEDS ORDERED: Nitroglycerin 0.4 MG Tab.SL SL ONE (14:34)
[2022-03-05] MEDS ORDERED: Aspirin 81 MG Tab.Chew PO ONE (14:34)
== END 2022-03-05 16:25 | disposition home or self-care (01) ==
LOC: JD.ED 14:14
DX: I20.9 Angina pectoris, unspecified (principal); E78.00 Pure hypercholesterolemia, unspecified; I10 Essential (primary) hypertension; Z86.16 Personal history of COVID-19
CPT/HCPCS: 36415; 71045; 80053; 83735; 83880; 84484; 85025; 85379; 85610; 85730; 93005; 99285; A9270; J3490

== ENCOUNTER 2022-08-12 20:17 | Emergency (ER) | payer MEDICAID ==
[2022-08-12] MEDS ORDERED: Ondansetron 4 MG/2 ML SDV ONE (22:57)
[2022-08-12] MEDS ORDERED: Ketorolac 30 MG/ML SDV ONE (22:57)
[2022-08-12] MEDS ORDERED: Ondansetron 4 MG/2 ML SDV IV ONE (23:15)
[2022-08-12] MEDS ORDERED: Ketorolac 30 MG/ML SDV IVPUSH ONE (23:16)
[2022-08-12] MEDS ORDERED: Sodium Chloride 0.9% 1,000 ML IV ONE (23:19)
[2022-08-12 23:58] LABS: ESTIMATED GFR 70 mL/min (>60)
[2022-08-13] MEDS ORDERED: Morphine 4 MG/ML Syringe ONE (00:39)
[2022-08-13] MEDS ORDERED: Acetaminophen/HYDROcodone 325-5 MG Tab ONE (01:42)
[2022-08-13] MEDS ORDERED: Gabapentin 300 MG Cap ONE (01:45)
[2022-08-13] MEDS ORDERED: Acetaminophen/HYDROcodone 325-5 MG Tab PO ONE (01:47)
[2022-08-13] MEDS ORDERED: Gabapentin 300 MG Cap PO ONE (01:47)
== END 2022-08-13 02:00 | disposition home or self-care (01) ==
LOC: JD.ED 20:17
DX: M54.42 Lumbago with sciatica, left side (principal); Z98.890 Other specified postprocedural states
CPT/HCPCS: 36415; 72131; 74176; 80053; 81001; 85025; 85652; 86140; 96374; 96375; 99284; A9270; J1885; J2270; J2405; J7030

== ENCOUNTER 2022-10-04 09:06 | Emergency (ER) | payer MEDICAID ==
[2022-10-04] MEDS ORDERED: Aspirin 81 MG Tab.Chew PO ONE (11:08)
[2022-10-04] MEDS ORDERED: Nitroglycerin/D5W 25 MG/250 ML BOTTLE IV SCH (11:15)
[2022-10-04] MEDS ORDERED: Metoclopramide 10 MG/2 ML SDV IVPUSH ONE (11:57)
[2022-10-04] MEDS ORDERED: HYDROmorphone 1 MG/ML Syringe IVPUSH ONE (11:58)
[2022-10-04 11:59] LABS: ESTIMATED GFR 77 mL/min (>60)
[2022-10-04] MEDS ORDERED: Metoclopramide 10 MG/2 ML SDV ONE (12:00)
[2022-10-04] MEDS ORDERED: HYDROmorphone 1 MG/ML Syringe ONE (12:00)
[2022-10-04] MEDS ORDERED: Iopamidol 755 Mg/ML 100 ML Bottle IVPUSH ONE (12:57)
[2022-10-04] MEDS ORDERED: LORazepam 2 MG/ML SDV IVPUSH ONE (13:02)
[2022-10-04] MEDS ORDERED: HYDROmorphone 0.5 MG/0.5 ML Syringe IVPUSH ONE (13:02)
[2022-10-04] MEDS ORDERED: Albuterol 6.7 GM Inhaler INH PRN (13:39)
== END 2022-10-04 14:51 | disposition home or self-care (01) ==
LOC: JD.ED 09:06
DX: R07.89 Other chest pain (principal); E78.00 Pure hypercholesterolemia, unspecified; I10 Essential (primary) hypertension; F17.210 Nicotine dependence, cigarettes, uncomplicated; Z86.16 Personal history of COVID-19
CPT/HCPCS: 36415; 71045; 71045-26; 71275; 71275-26; 80053; 81001; 82553; 83735; 83880; 84484; 85025; 85379; 85610; 85652; 85730; 86140; 94640; 96365; 96366; 96375; 96376; 99285-25; A9270-GY; J1170; J2060; J2765; J3490; Q9967

== ENCOUNTER 2022-11-24 10:09 | Emergency (ER) | payer MEDICAID ==
[2022-11-24] MEDS ORDERED: Sodium Chloride 0.9% 10 ML Syringe FLUSH PRN (10:38)
[2022-11-24] MEDS ORDERED: HYDROmorphone 1 MG/ML Syringe IVPUSH ONE ×2 (10:40→13:07)
[2022-11-24 11:20] LABS: ESTIMATED GFR 77 mL/min (>60)
== END 2022-11-24 13:30 | disposition home or self-care (01) ==
LOC: JD.ED 10:09
DX: R10.11 Right upper quadrant pain (principal); I10 Essential (primary) hypertension; F17.210 Nicotine dependence, cigarettes, uncomplicated; Z86.16 Personal history of COVID-19
CPT/HCPCS: 36415; 71045; 80053; 83690; 84484; 85025; 86140; 93005; 96374; 96376; 99284; J1170; J3490

== ENCOUNTER 2022-12-11 10:22 | Emergency (ER) | payer MEDICAID ==
[2022-12-11] MEDS ORDERED: HYDROmorphone 1 MG/ML Syringe IVPUSH STA ×2 (11:22→15:12)
[2022-12-11] MEDS ORDERED: Ondansetron 4 MG/2 ML SDV IVPUSH ONE (11:22)
[2022-12-11] MEDS ORDERED: Sodium Chloride 0.9% 10 ML Syringe FLUSH PRN ×2 (11:22→11:47)
[2022-12-11] MEDS ORDERED: Sodium Chloride 0.9% 1,000 ML IV SCH (11:30)
[2022-12-11] MEDS ORDERED: Iopamidol 755 Mg/ML 100 ML Bottle IVPUSH ONE (11:47)
[2022-12-11] MEDS ORDERED: Sodium Chloride 0.9% 100 ML IV SCH (12:00)
[2022-12-11] MEDS ORDERED: HYDROmorphone 0.5 MG/0.5 ML Syringe IVPUSH ONE (17:05)
== END 2022-12-11 17:35 | disposition home or self-care (01) ==
LOC: JD.ED 10:22
DX: R10.32 Left lower quadrant pain (principal); R91.1 Solitary pulmonary nodule; I10 Essential (primary) hypertension; E78.00 Pure hypercholesterolemia, unspecified; F17.210 Nicotine dependence, cigarettes, uncomplicated; Z86.16 Personal history of COVID-19; Z79.899 Other long term (current) drug therapy
CPT/HCPCS: 36415; 71260; 74177; 80053; 81001; 83690; 85025; 86140; 93925; 93970; 96361; 96374; 96375; 96376; 99284; J1170; J2405; J3490; J7030; Q9967

== ENCOUNTER 2024-01-25 19:31 | Emergency (ER) | payer MEDICAID ==
[2024-01-25] MEDS ORDERED: Sodium Chloride 0.9% 10 ML Syringe FLUSH PRN (19:56)
[2024-01-25] MEDS: Aspirin 81 MG Tab.Chew PO ONE (19:59)
[2024-01-25 20:07] LABS: BASOPHILS ABSOLUTE AUTO 0.1 K/mm3 (0.0-0.2); BASOPHILS PERCENT AUTO 0.7 % (0.0-1.0); EOSINOPHILS ABSOLUTE AUTO 0.4 K/mm3 (0.0-0.4); EOSINOPHILS PERCENT AUTO 4.5 % (0.0-6.0); HEMATOCRIT 47.7 % (42.0-52.0); HEMOGLOBIN 16.3 gm/dl (14.0-18.0); IMMATURE GRAN ABSOLUTE AUTO 0.02 K/mm3 (0.00-0.05); IMMATURE GRAN PERCENT AUTO 0.2 % (0.0-0.4); LYMPHOCYTES ABSOLUTE AUTO 4.3 K/mm3 (1.0-4.8); LYMPHOCYTES PERCENT AUTO 44.4 % (24.0-44.0); MEAN CORPUSCULAR HEMOGLOBIN 29.7 pg (28.0-32.0); MEAN CORPUSCULAR HGB CONC 34.2 g/dl (32.0-36.0); MEAN PLATELET VOLUME 9.2 fl (9.4-12.4); MONOCYTES ABSOLUTE AUTO 0.7 K/mm3 (0.0-0.8); MONOCYTES PERCENT AUTO 7.3 % (0.0-8.0); NEUTROPHILS ABSOLUTE AUTO 4.2 K/mm3 (1.8-7.7); NEUTROPHILS PERCENT AUTO 42.9 % (41.0-71.0); PLATELET COUNT,PLT 276 K/mm3 (150-400); RED BLOOD CELL COUNT 5.48 M/mm3 (4.52-5.90); WHITE BLOOD CELL COUNT,WBC 9.71 K/mm3 (3.9-11.3)
[2024-01-25] MEDS: Morphine 2 MG/ML SYRINGE IVPUSH ONE (20:35)
[2024-01-25 20:41] LABS: A/G RATIO 0.8 (1-2); ALBUMIN 3.3 g/dl (3.4-5.0); ANION GAP 12.1 (5-15); BILIRUBIN TOTAL 0.3 mg/dL (0.2-1.0); BUN/CREATININE RATIO 8.2 (14-18); CALCIUM 8.5 mg/dL (8.5-10.1); CREATININE 1.1 mg/dL (0.7-1.3); EST CRCL DRUG DOSING (CG) 63.64 mL/min; POTASSIUM,K 4.1 mEq/L (3.5-5.1); PROTEIN TOTAL,TP 7.3 g/dl (6.4-8.2)
[2024-01-25] MEDS: Ondansetron 4 MG/2 ML SDV IVPUSH ONE (20:42)
[2024-01-25] MEDS: Sodium Chloride 0.9% 100 ML IV SCH (21:34)
[2024-01-25] MEDS: Iopamidol 755 Mg/ML 100 ML Bottle IVPUSH ONE (21:34)
== END 2024-01-25 23:18 | disposition home or self-care (01) ==
LOC: JD.ED 19:31
DX: I25.10 Atherosclerotic heart disease of native coronary artery without angina pectoris (principal); R07.89 Other chest pain; I10 Essential (primary) hypertension; E78.00 Pure hypercholesterolemia, unspecified; Z86.16 Personal history of COVID-19; F17.210 Nicotine dependence, cigarettes, uncomplicated; Z79.82 Long term (current) use of aspirin; Z79.899 Other long term (current) drug therapy
CPT/HCPCS: 36415; 71046; 71275; 80053; 84484; 85025; 85379; 93005; 96374; 96375; 99285; A9270; J2270; J2405; J3490; Q9967; 93010; 99284